=== PATIENT | male | born 1940 | race Caucasian/White ===

== ENCOUNTER 2020-09-11 20:42 | Inpatient (IN) | payer OTHER ==
[~2020-09-11] VITALS: Ht 172.7 cm; Wt 77.1 kg
[2020-09-11] MEDS ORDERED: IV NORMAL SALINE 500 ML BAG IV ONE (21:00)
[2020-09-11] MEDS ORDERED: NITROGLYCERIN 0.4 MG/TAB BOTTLE SL ONE (21:00)
--- NOTE | 2020-09-11 21:00 | NUR ---
CALLED [facility], SPOKE TO GILMAR. FAXED FACESHEET AND EKG TO .
--- NOTE | 2020-09-11 21:09 | NUR ---
DR PASCUAL SPEAKING TO ODD PIECE CHECKER FROM [facility] DR DURON.
--- NOTE | 2020-09-11 21:12 | NUR ---
2 NITRO DOSES GIVEN IN THE FIELD BY FER RA88 DR PASCUAL MADE AWARE GIVE ONLY DOSE OF NITRO.
[2020-09-11 21:36] LABS: CARBON DIOXIDE 26 mmol/L (21-32); CHLORIDE 103 mmol/L (98-107); CREATININE 1.9 mg/dL (0.6-1.3); GLUCOSE 259 mg/dL (74-106); POTASSIUM 4.1 mmol/L (3.5-5.1); UREA NITROGEN, BLOOD 28 mg/dL (7-18)
--- NOTE | 2020-09-11 21:48 | NUR ---
GILMAR FROM [facility] CALLED WILL NO BE ABLE TO TAKE PATIENT DR JARVIS MADE AWARE.
[2020-09-11 21:49] LABS: ALANINE AMINOTRANSFERASE 18 U/L (16-63); ALKALINE PHOSPHATASE 57 U/L (50-136); ASPARTATE AMINOTRANSFERASE 12 U/L (15-37); BILIRUBIN,DIRECT 0.1 mg/dL (0.0-0.2); BILIRUBIN,TOTAL 0.3 mg/dL (0.2-1.0); TOTAL PROTEIN, SERUM 7.9 g/dL (6.4-8.2)
[2020-09-11 21:54] LABS: BASOPHILS # (AUTO) 0.1 K/uL (0.0-8.0); BASOPHILS % (AUTO) 0.5 % (0.0-2.0); EOSINOPHILS # (AUTO) 0.2 K/uL (0.0-0.7); EOSINOPHILS % (AUTO) 1.2 % (0.0-7.0); HEMATOCRIT 30.2 % (36.7-47.1); HEMOGLOBIN 10.1 g/dL (12.5-16.3); LYMPHOCYTES # (AUTO) 1.4 K/uL (20.0-40.0); LYMPHOCYTES % (AUTO) 10.9 % (20.5-51.5); MEAN CORPUSCULAR HEMOGLOBIN 28.6 uug (23.8-33.4); MEAN CORPUSCULAR HGB CONC 33 g/dL (32.5-36.3); MEAN CORPUSCULAR VOLUME 85.5 fL (73.0-96.2); MONOCYTES # (AUTO) 0.9 K/uL (2.0-10.0); MONOCYTES % (AUTO) 6.9 % (0.0-11.0); NEUTROPHILS # (AUTO) 10.5 K/uL (1.8-8.9); NEUTROPHILS % (AUTO) 80.5 % (38.5-71.5); PLATELET COUNT (AUTO) 293 K/uL (152-348); RED BLOOD CELL COUNT(AUTO) 3.53 MIL/uL (4.06-5.63); WHITE BLOOD COUNT (AUTO) 13.1 K/uL (3.6-10.2)
[2020-09-11] MEDS ORDERED: HEPARIN/D5W DRIP 500 ML IV ONE (22:00)
[2020-09-11] MEDS ORDERED: HEPARIN SODIUM,PORCINE 5,000 UNITS/ML VIAL IV ONE ×2 (22:00→22:30)
[2020-09-11] MEDS ORDERED: HEPARIN/D5W DRIP 500 ML ONE (22:33)
[2020-09-11] MEDS ORDERED: HEPARIN SODIUM,PORCINE 5,000 UNITS/ML VIAL ONE (22:33)
[2020-09-11] MEDS ORDERED: FUROSEMIDE 40 MG/4 ML VIAL IV ONE (23:15)
--- NOTE | 2020-09-12 01:10 | NUR ---
PATIENT WAS ACCEPTED BY Tanna Overton INTERMEDIATE CARD TENDER ADMIT TO TELE.
[2020-09-12] MEDS ORDERED: DEXTROSE 50% 50 ML DISP.SYRIN IV PRN (01:15)
[2020-09-12] MEDS ORDERED: ACETAMINOPHEN 325 MG TABLET PO PRN (01:15)
[2020-09-12] MEDS ORDERED: ONDANSETRON 4 MG/2 ML VIAL IV PRN (01:15)
[2020-09-12] MEDS ORDERED: HEPARIN/D5W DRIP 500 ML IV PRN (01:15)
[2020-09-12] MEDS ORDERED: MAGNESIUM HYDROXIDE 30 ML LIQUID UDC PO PRN (01:15)
[2020-09-12] MEDS ORDERED: Z GUARD REMEDY PASTE 57 GM TUBE TOP PRN (01:15)
[2020-09-12] MEDS ORDERED: NITROGLYCERIN 0.4 MG/TAB BOTTLE SL PRN (01:15)
[2020-09-12 01:26] LABS: *BILIRUBIN,URIN NEGATIVE (NEGATIVE); *BLOOD, URINE TRACE (NEGATIVE); *CLARITY,URINE CLEAR (CLEAR); *COLOR,URINE YELLOW (YELLOW); *KETONES,URINE NEGATIVE (NEGATIVE); *UROBILINOGEN,URINE 0.2 E.U./dl (NORMAL); LEUKOCYTE ESTERASE ,URINE NEGATIVE (NEGATIVE); NITRITE, URINE NEGATIVE (NEGATIVE); PH,URINE 5.5 (5.0-8.0); UGLUCOSE NEGATIVE (NEGATIVE)
[2020-09-12 01:32] LABS: BACTERIA,URINE NONE SEEN /HPF (NONE SEEN); SQUAMOUS EPITHELIAL CELL,UR NONE SEEN /HPF (NONE SEEN); WBC,URINE 0-3 /HPF (0-3); YEAST,URINE NONE SEEN /HPF (NONE SEEN)
[2020-09-12 01:33] LABS: URINE AMORPHOUS URATE FEW /HPF
[2020-09-12] MEDS: AZITHROMYCIN 250 MG TABLET PO SCH ×2 (02:02→15:10)
[2020-09-12] MEDS: CEFTRIAXONE 1 G in IV DEXTROSE 5% 50 ML IV SCH (02:03)
[2020-09-12] MEDS ORDERED: CEFTRIAXONE /D5W 50ML IVPB **ER PYXIS IV ONE ×2 (02:05→14:30)
[2020-09-12] MEDS ORDERED: AZITHROMYCIN 250 MG TABLET ONE ×2 (02:05→14:30)
--- NOTE | 2020-09-12 08:00 | NUR ---
Pt sleeping in bed, no distress noted.
--- NOTE | 2020-09-12 10:00 | NUR ---
Pt accidentally pulled 22g IV line. Started IV 20g left hand.
[2020-09-12] MEDS ORDERED: NITROGLYCERIN 0.4 MG/TAB BOTTLE SL ONE (10:21)
--- NOTE | 2020-09-12 10:54 | NUR ---
Pt c/o left shoulder and left arm pain/pressure, /. Gave nitro SL at 1018: 1024: 126/78 pain level 8 Gave NG #2 at 1025 1030: 118/73 pain level 6, tolerable Pt desaturated to 84-86%, placed him on NRM at 10 lpm SPO2 increased to 96-97%. Pt stated he felt better as well.
[2020-09-12] MEDS ORDERED: SWABABLE VALVE TRANSFER SET EA MC ONE (11:43)
[2020-09-12] MEDS ORDERED: IOHEXOL 350 100 ML INFUS..BTL ONE (11:43)
[2020-09-12] MEDS ORDERED: IV NORMAL SALINE 250 ML IV ONE (11:43)
[2020-09-12] MEDS ORDERED: FUROSEMIDE 20 MG/2 ML VIAL ONE (14:30)
[2020-09-12] MEDS ORDERED: FUROSEMIDE 40 MG/4 ML VIAL IV ONE (17:30)
[2020-09-12] MEDS: BLOOD SUGAR DIAGNOSTIC 1 EACH STRIP VI SCH ×3 (17:45→21:15)
[2020-09-12] MEDS ORDERED: ZOLPIDEM 5 MG TABLET PO PRN (18:00)
[2020-09-12] MEDS: INSULIN REGULAR, HUMAN 300 UNIT/3 ML VIAL SQ PRN ×2 (18:38→21:20)
[2020-09-12] MEDS ORDERED: FUROSEMIDE 40 MG/4 ML VIAL ONE ×2 (19:46)
[2020-09-12] MEDS ORDERED: ASPIRIN 81 MG TAB.CHEW ONE (19:46)
[2020-09-12] MEDS: ASPIRIN 81 MG TAB.CHEW PO SCH (19:47)
--- NOTE | 2020-09-12 19:49 | NUR ---
Heparin infusing at 11 units per hour. no s/s of bleeding noted.
--- NOTE | 2020-09-12 19:53 | NUR ---
Patient denies chest pain at this time. VSS due meds given, needs attended to. Awaiting inpatient bed. will monitor.
--- NOTE | 2020-09-12 20:20 | NUR ---
Patient voided 400ml clear, yellow urine.
--- NOTE | 2020-09-12 20:27 | NUR ---
Spoke with Dr. Pierre (program manager environmental planning) from cardiology regarding patient able to downgrade to tele, per Dr. Pierre keep patient [facility].
[2020-09-12] MEDS ORDERED: FUROSEMIDE 40 MG/4 ML VIAL IV SCH (21:00)
--- NOTE | 2020-09-12 21:05 | NUR ---
patient voided 500ml clear yellow urine.
[2020-09-12] MEDS: METOPROLOL TARTRATE 25 MG TABLET PO SCH (21:20)
[2020-09-12] MEDS: ATORVASTATIN 40 MG TABLET PO SCH (21:21)
[2020-09-12] MEDS ORDERED: HEPARIN/D5W DRIP 500 ML ONE (22:22)
--- NOTE | 2020-09-13 | NUR ---
Patient resting in bed, denies chest pain at this time. Needs met.
[2020-09-13] MEDS ORDERED: CEFTRIAXONE /D5W 50ML IVPB **ER PYXIS IV ONE (00:15)
[2020-09-13] MEDS: CEFTRIAXONE 1 G in IV DEXTROSE 5% 50 ML IV SCH (00:43)
--- NOTE | 2020-09-13 02:00 | NUR ---
Report given to LUIS FELIPE Martini. Belongings list completed. Admitted to [facility] by Tanna Overton NP.
--- NOTE | 2020-09-13 02:00 | NUR ---
Note ky in EDM - 09/13/20 at 0526 by [id number] Pt. admitted to [facility], under care of Dr. Alie Murdock PRACTICE OR STUDENT TEACHER Belongs List completed.
--- NOTE | 2020-09-13 03:21 | NUR ---
Patient voided 300ml clear yellow urine.
[2020-09-13 06:15] LABS: CARBON DIOXIDE 35 mmol/L (21-32); CHLORIDE 96 mmol/L (98-107); CHOLESTEROL 169 mg/dL (<200); CREATININE 1.9 mg/dL (0.6-1.3); GLUCOSE 225 mg/dL (74-106); HDL CHOLESTEROL 56 mg/dL (40-60); MAGNESIUM 1.7 mg/dL (1.8-2.4); PHOSPHOROUS 3.4 mg/dL (2.5-4.9); POTASSIUM 3.1 mmol/L (3.5-5.1); TRIGLYCERIDES 117 MG/DL (30-150); UREA NITROGEN, BLOOD 26 mg/dL (7-18)
[2020-09-13 06:29] LABS: BASOPHILS # (AUTO) 0.1 K/uL (0.0-8.0); BASOPHILS % (AUTO) 0.6 % (0.0-2.0); EOSINOPHILS # (AUTO) 0.1 K/uL (0.0-0.7); EOSINOPHILS % (AUTO) 0.6 % (0.0-7.0); HEMATOCRIT 29.3 % (36.7-47.1); HEMOGLOBIN 10.3 g/dL (12.5-16.3); LYMPHOCYTES # (AUTO) 1.9 K/uL (20.0-40.0); LYMPHOCYTES % (AUTO) 19.7 % (20.5-51.5); MEAN CORPUSCULAR HEMOGLOBIN 29.9 uug (23.8-33.4); MEAN CORPUSCULAR HGB CONC 35 g/dL (32.5-36.3); MEAN CORPUSCULAR VOLUME 85.1 fL (73.0-96.2); MONOCYTES # (AUTO) 0.8 K/uL (2.0-10.0); MONOCYTES % (AUTO) 8.5 % (0.0-11.0); NEUTROPHILS # (AUTO) 6.8 K/uL (1.8-8.9); NEUTROPHILS % (AUTO) 70.6 % (38.5-71.5); PLATELET COUNT (AUTO) 274 K/uL (152-348); RED BLOOD CELL COUNT(AUTO) 3.44 MIL/uL (4.06-5.63); WHITE BLOOD COUNT (AUTO) 9.6 K/uL (3.6-10.2)
[2020-09-13 06:55] VITALS: BP 139/68
[2020-09-13] MEDS: BLOOD SUGAR DIAGNOSTIC 1 EACH STRIP VI SCH ×5 (08:21→20:18)
[2020-09-13] MEDS: AZITHROMYCIN 250 MG TABLET PO SCH (08:44)
[2020-09-13] MEDS: ASPIRIN 81 MG TAB.CHEW PO SCH (08:44)
[2020-09-13] MEDS: METOPROLOL TARTRATE 25 MG TABLET PO SCH ×2 (08:48→20:11)
[2020-09-13] MEDS: INSULIN REGULAR, HUMAN 300 UNIT/3 ML VIAL SQ PRN ×4 (08:49→20:22)
[2020-09-13] MEDS ORDERED: MAGNESIUM SULFATE/D5W 100 ML IV SCH (09:45)
[2020-09-13] MEDS ORDERED: POTASSIUM CHLORIDE 10 MEQ TAB.PRT.SR PO ONE (10:00)
[2020-09-13 11:08] VITALS: BP 135/63
[2020-09-13] MEDS: FUROSEMIDE 20 MG/2 ML VIAL IV SCH ×2 (13:23→20:11)
[2020-09-13] MEDS: HYDROCODONE/APAP 5-325MG TABLET PO PRN (13:27)
[2020-09-13] MEDS ORDERED: HEPARIN SODIUM,PORCINE 5,000 UNITS/ML VIAL IV ONE (14:30)
[2020-09-13 15:10] VITALS: BP 124/63
[2020-09-13] MEDS ORDERED: METFORMIN HCL 500 MG TABLET PO SCH (18:00)
--- NOTE | 2020-09-13 19:00 | NUR ---
Received patient from AM nurse. Stable condition. Safety measures in place. Plan of care in place. Will monitor and assess.
[2020-09-13] MEDS: ATORVASTATIN 40 MG TABLET PO SCH (20:11)
[2020-09-13 20:12] VITALS: BP 129/59
[2020-09-13] MEDS ORDERED: INSULIN REGULAR, HUMAN 300 UNITS/3 ML VIAL SQ PRN (21:15)
[2020-09-13] MEDS ORDERED: DEXTROSE 50% 50 ML DISP.SYRIN IV PRN (21:15)
--- NOTE | 2020-09-13 21:37 | NUR ---
Received lab value of 77.7 PTT. Patient is on Heparin ACS Drip Protocol. Protocol states that for aPTT of 71-80: Decrease Rate by 100 units/hr. Patient was receiving 1350 units/hr --- that rate was DECREASED to 1250 units/hr per protocol. Will monitor and assess.
[2020-09-13] MEDS ORDERED: HEPARIN/D5W DRIP 500 ML ONE (22:00)
[2020-09-14] VITALS: BP 130/66
[2020-09-14] MEDS: CEFTRIAXONE 1 G in IV DEXTROSE 5% 50 ML IV SCH (00:28)
--- NOTE | 2020-09-14 01:05 | NUR ---
Received lab value of 58.0 aPTT. here is NO CHANGE in Heparin Drip per Protocol. Will monitor and assess.
[2020-09-14 04:03] VITALS: BP 145/66
[2020-09-14 06:08] LABS: BASOPHILS # (AUTO) 0.1 K/uL (0.0-8.0); BASOPHILS % (AUTO) 0.8 % (0.0-2.0); EOSINOPHILS # (AUTO) 0.1 K/uL (0.0-0.7); EOSINOPHILS % (AUTO) 1.7 % (0.0-7.0); HEMATOCRIT 30.2 % (36.7-47.1); HEMOGLOBIN 10.2 g/dL (12.5-16.3); LYMPHOCYTES # (AUTO) 1.9 K/uL (20.0-40.0); MEAN CORPUSCULAR HGB CONC 34 g/dL (32.5-36.3); MEAN CORPUSCULAR VOLUME 85.4 fL (73.0-96.2); MONOCYTES # (AUTO) 0.7 K/uL (2.0-10.0); MONOCYTES % (AUTO) 8.5 % (0.0-11.0); NEUTROPHILS # (AUTO) 5.3 K/uL (1.8-8.9); PLATELET COUNT (AUTO) 274 K/uL (152-348); RED BLOOD CELL COUNT(AUTO) 3.53 MIL/uL (4.06-5.63)
[2020-09-14] MEDS: BLOOD SUGAR DIAGNOSTIC 1 EACH STRIP VI SCH ×4 (06:50→20:08)
[2020-09-14 07:07] LABS: CARBON DIOXIDE 31 mmol/L (21-32); CHLORIDE 92 mmol/L (98-107); CREATININE 1.8 mg/dL (0.6-1.3); GLUCOSE 335 mg/dL (74-106); PHOSPHOROUS 6.1 mg/dL (2.5-4.9); POTASSIUM 2.9 mmol/L (3.5-5.1); UREA NITROGEN, BLOOD 29 mg/dL (7-18)
--- NOTE | 2020-09-14 08:00 | NUR ---
Pt alert and oriented x 4. Pt is in no acute distress. Call light is within reach. Pt denies any sob and pain.
[2020-09-14 09:11] VITALS: BP 156/78
[2020-09-14] MEDS: AZITHROMYCIN 250 MG TABLET PO SCH (09:27)
[2020-09-14] MEDS: FUROSEMIDE 20 MG/2 ML VIAL IV SCH (09:27)
[2020-09-14] MEDS: ASPIRIN 81 MG TAB.CHEW PO SCH (09:27)
[2020-09-14] MEDS: METOPROLOL TARTRATE 25 MG TABLET PO SCH ×2 (09:28→20:00)
[2020-09-14] MEDS: HYDROCODONE/APAP 5-325MG TABLET PO PRN (09:33)
[2020-09-14] MEDS: INSULIN REGULAR, HUMAN 300 UNIT/3 ML VIAL SQ PRN ×3 (09:37→17:01)
[2020-09-14 11:51] VITALS: BP 144/68
[2020-09-14] MEDS ORDERED: POTASSIUM CHLORIDE 10 MEQ TAB.PRT.SR PO ONE ×2 (13:00→13:15)
[2020-09-14] MEDS: POTASSIUM CHLORIDE 50 ML IV SCH ×3 (13:14→16:18)
[2020-09-14] MEDS ORDERED: POTASSIUM CHLORIDE 20 MEQ TAB.PRT.SR PO ONE ×2 (16:00)
[2020-09-14 16:29] VITALS: BP 134/67
[2020-09-14] MEDS ORDERED: FUROSEMIDE 20 MG TABLET PO SCH (17:00)
[2020-09-14] MEDS ORDERED: METFORMIN HCL 500 MG TABLET PO SCH (18:00)
--- NOTE | 2020-09-14 18:45 | NUR ---
K 4.3 resulted pt ok to be d/c per ag. Pt is in no acute distress. Call light is within reach.
[2020-09-14] MEDS ORDERED: AZIT500T2 PO (19:44)
[2020-09-14] MEDS ORDERED: POTA20TA10 PO (19:44)
[2020-09-14] MEDS ORDERED: FURO20TA4 PO (19:44)
[2020-09-14] MEDS ORDERED: ASPI81TA31 PO (19:44)
[2020-09-14] MEDS ORDERED: METO25TA6 PO (19:44)
[2020-09-14] MEDS ORDERED: ATOR40TA PO (19:44)
[2020-09-14] MEDS ORDERED: FURO-151 PO (19:52)
[2020-09-14] MEDS: ATORVASTATIN 40 MG TABLET PO SCH (20:00)
--- NOTE | 2020-09-14 20:59 | NUR ---
Received patient from AM nurse. Stable condition. Safety measures in place. Care plan being attended to. Will monitor and assess.
[2020-09-14 21:08] VITALS: BP 120/57
== END 2020-09-14 21:45 | disposition home or self-care (01) | DRG 200 ==
LOC: ER 20:45 → TRANSITION 09-12 01:29 → TELE-TD3 09-12 01:30
PROVIDERS: ADMIT Registered Nurse; ATTEND Registered Nurse
DX: I35.0 Nonrheumatic aortic (valve) stenosis (principal); N17.0 Acute kidney failure with tubular necrosis; I21.A1 Myocardial infarction type 2; D72.829 Elevated white blood cell count, unspecified; I13.0 Hypertensive heart and chronic kidney disease with heart failure and stage 1 through stage 4 chronic kidney disease, or unspecified chronic kidney disease; E87.6 Hypokalemia; I25.10 Atherosclerotic heart disease of native coronary artery without angina pectoris; N18.9 Chronic kidney disease, unspecified; Z86.19 Personal history of other infectious and parasitic diseases; Z86.73 Personal history of transient ischemic attack (TIA), and cerebral infarction without residual deficits; E11.22 Type 2 diabetes mellitus with diabetic chronic kidney disease; I50.33 Acute on chronic diastolic (congestive) heart failure; J96.00 Acute respiratory failure, unspecified whether with hypoxia or hypercapnia; Z98.61 Coronary angioplasty status; J96.01 Acute respiratory failure with hypoxia
CPT/HCPCS: 36415; 70030-TC; 71045; 83605; 83735; 84100; 84132; 85025; 85610; 85730; 93005; 93307; A4663; G0378; J0696; J1644; J1815; J1940; J3475; J3480; J7030; J7050; J7060; Q0144; Q9967